=== PATIENT | female | born 1955 | race Caucasian/White ===

== ENCOUNTER 2021-08-31 15:20 | Emergency (ER) | payer BC, OTHER ==
[2021-08-31 15:41] VITALS: BP 118/74; PULSE 74; TEMP 98.6; BMI 24.9
[2021-08-31] MEDS ORDERED: IBUPROFEN 600 MG TABLET (FP) PO ONE (15:43)
[2021-08-31] MEDS ORDERED: IBUPROFEN 400 MG TABLET (FP) PO ONE ×2 (15:52→15:57)
== END 2021-08-31 17:15 | disposition home or self-care (01) ==
LOC: FER 15:20
DX: S92.514A Nondisplaced fracture of proximal phalanx of right lesser toe(s), initial encounter for closed fracture (principal); W22.8XXA Striking against or struck by other objects, initial encounter
CPT/HCPCS: 73630-TC-RT-FY; 99283-25